=== PATIENT | male | born 1980 | race Caucasian/White ===

== ENCOUNTER 2025-03-16 21:39 | Emergency (ER) | payer SELFPAY ==
[2025-03-16 21:41] VITALS: BP 122/81; PULSE 116; RESP 18; TEMP 36.7; O2SAT 99; BMI 32.3
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
[2025-03-16] MEDS: IBUPROFEN TAB 400 MG TABLET 800 MG PO (23:31)
== END 2025-03-17 01:06 | disposition home or self-care (01) ==
PROVIDERS: Emergency Provider Emergency Medicine; PCP Family Medicine
DX: S69.92XA Unspecified injury of left wrist, hand and finger(s), initial encounter (principal); V19.3XXA Pedal cyclist (driver) (passenger) injured in unspecified nontraffic accident, initial encounter; Y93.55 Activity, bike riding
CPT/HCPCS: 73130; 99283; A9270

== ENCOUNTER 2025-07-15 22:08 | Emergency (ER) | payer SELFPAY ==
[2025-07-15 22:09] VITALS: BMI 34.3
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
[2025-07-15 22:35] VITALS: BP 136/91; PULSE 105; RESP 18; TEMP 36.6; O2SAT 98
[2025-07-15] MEDS: AMOXICILLIN/POT CLAV 875 TABLET 1 TAB PO (22:41)
[2025-07-15] MEDS: DIPHTH,PERTUSS(ACELL),TET VAC 0.5 ML SYR- ADULT IMi (22:43)
[2025-07-15] MEDS: BACITRACIN OINT 1 GM PACKET TOP (22:45)
== END 2025-07-15 22:49 | disposition home or self-care (01) ==
LOC: SERX 22:55
PROVIDERS: Emergency Provider Emergency Medicine; PCP Family Medicine
DX: S61.011A Laceration without foreign body of right thumb without damage to nail, initial encounter (principal); W45.8XXA Other foreign body or object entering through skin, initial encounter
CPT/HCPCS: 12002; 90471; 90715; 99284; A9270